=== PATIENT | female | born 1975 | race Caucasian/White ===

== ENCOUNTER 2024-12-06 21:54 | Emergency (ER) | payer MEDICAID ==
[~2024-12-06 21:54] MED LIST: DESO1TAB17 PO; LAMO100T56 PO; MULT-1065 PO; RISP1SOL10 PO; RISP3TAB6 PO; VENL-66 PO
== END 2024-12-06 22:10 | disposition left against medical advice (07) ==
LOC: EMS 21:56
DX: Z00.8 Encounter for other general examination (principal); Z53.21 Procedure and treatment not carried out due to patient leaving prior to being seen by health care provider

== ENCOUNTER 2025-01-11 19:00 | Inpatient (IN) | payer MEDICAID ==
[~2025-01-11] VITALS: Ht 167.6 cm; Wt 68.2 kg
[~2025-01-11 19:00] MED LIST changes: -DESO1TAB17 PO; +LAMO-24 PO; -LAMO100T56 PO; -MULT-1065 PO; +OLAN15TA21 PO; -RISP1SOL10 PO; -RISP3TAB6 PO
[2025-01-11 19:43] LABS: PLATELET COUNT (AUTO) 388 K/uL (150-450); RED BLOOD CELL COUNT(AUTO) 4.38 MIL/uL (4.00-5.20); RED CELL DISTRIBUTION WIDTH 13.9 % (11.5-14.5); WHITE BLOOD COUNT (AUTO) 8.1 K/uL (4.5-11.0)
[2025-01-11 19:51] LABS: CALCIUM, TOTAL 8.4 mg/dL (8.8-10.5); CREATININE 0.66 mg/dL (0.60-1.30); GLOMERULAR FILTR. RATE CALC > 60 mL/min (>60); GLUCOSE,RANDOM 103 mg/dL (70-110); SODIUM SERUM 139 mmol/L (136-145); UREA NITROGEN, BLOOD 8 mg/dL (7-18)
[2025-01-11] MEDS: LORazepam 2 MG/ML VIAL IM ONE (20:45)
[2025-01-11] MEDS: ZOLPIDEM TARTRATE 10 MG TABLET PO PRN (21:02)
[2025-01-11 21:18] LABS: APPEARANCE,URINE CLEAR (CLEAR); GLUCOSE, URINE (UA) NEGATIVE (NEGATIVE); LEUKOCYTE ESTERASE ,URINE NEGATIVE (NEGATIVE); NITRATE,URINE NEGATIVE (NEGATIVE); OCCULT BLOOD,URINE NEGATIVE (NEGATIVE); PH,URINE DRUG SCREEN 6.5 (5.0-8.0); SPECIFIC GRAVITIY, URINE 1.011 (1.003-1.030)
[2025-01-11 21:29] LABS: ALCOHOL, URINE DRUG SCREEN NEGATIVE (NEGATIVE); AMPHET/METH SCREEN,URINE NEGATIVE (NEGATIVE); BARBITURATE SCREEN, URINE NEGATIVE (NEGATIVE); CANNABINOID SCREEN,URINE NEGATIVE (NEGATIVE); COCAINE SCREEN,URINE NEGATIVE (NEGATIVE); METHADONE SCREEN, URINE NEGATIVE (NEGATIVE)
[2025-01-11 23:15] LABS: COVID AG,FIA SOURCE NASAL SWAB
[2025-01-11 23:27] LABS: SARS-COV2 (COVID) ANTIGEN,FIA Negative (Negative)
[2025-01-12 03:50] VITALS: BP 124/89; PULSE 91; RESP 17; TEMP 97.4; O2SAT 99
[2025-01-12 03:52] VITALS: BP 124/89; PULSE 91; RESP 17; TEMP 97.4; O2SAT 99
[2025-01-12] MEDS ORDERED: LOPERAMIDE HCL 2 MG CAPSULE PO PRN (06:30)
[2025-01-12] MEDS ORDERED: PETROLATUM,WHITE 28 GM JELLY TP PRN (06:30)
[2025-01-12] MEDS ORDERED: MAGNESIUM HYDROXIDE SUSPENSION 30 ML UDCUP PO PRN (06:30)
[2025-01-12] MEDS ORDERED: ACETAMINOPHEN 325 MG TABLET PO PRN (06:30)
[2025-01-12] MEDS ORDERED: MAG HYDROX/ALUMINUM HYD/SIMETH ES 30 ML SUSPENSION UDCUP PO PRN (06:30)
[2025-01-12] MEDS ORDERED: DOCUSATE SODIUM 100 MG CAPSULE PO PRN (06:30)
[2025-01-12] MEDS ORDERED: NICOTINE 14 MG/24 HOUR PATCH TD PRN (06:30)
[2025-01-12] MEDS ORDERED: ALBUTEROL SULFATE HFA 90 MCG/PUFF 8 GM INHALER IH PRN (06:30)
[2025-01-12] MEDS ORDERED: GuaiFENesin/D-METHORPHAN [SUGAR-FREE] 200-20MG/10 ML SYRUP UDCUP PO PRN (06:30)
[2025-01-12 08:40] LABS: PLATELET COUNT (AUTO) 323 K/uL (150-450); RED BLOOD CELL COUNT(AUTO) 3.93 MIL/uL (4.00-5.20); RED CELL DISTRIBUTION WIDTH 13.8 % (11.5-14.5); WHITE BLOOD COUNT (AUTO) 7.3 K/uL (4.5-11.0)
[2025-01-12] MEDS ORDERED: LITH300C3 PO (09:10)
[2025-01-12 09:30] LABS: ASPARTATE AMINOTRANSFERASE 19 U/L (15-37); CALCIUM, TOTAL 8.1 mg/dL (8.8-10.5); CHOL/HDL RATIO 2.6 (3.9-5.7); CREATININE 0.64 mg/dL (0.60-1.30); GLOMERULAR FILTR. RATE CALC > 60 mL/min (>60); GLUCOSE,RANDOM 92 mg/dL (70-110); LDL CHOL (CALC.) 71 mg/dL (0-130); SODIUM SERUM 140 mmol/L (136-145); TOTAL PROTEIN, SERUM 6.2 g/dL (6.4-8.2); UREA NITROGEN, BLOOD 10 mg/dL (7-18)
[2025-01-12] MEDS: LITHIUM CARBONATE 300 MG CAPSULE PO SCH (09:37)
[2025-01-12 20:11] VITALS: BP 133/79; PULSE 80; RESP 17; TEMP 97.8; O2SAT 98
[2025-01-12] MEDS: OLANZapine 7.5 MG TABLET PO SCH (21:00)
[2025-01-13 08:07] VITALS: BP 111/60; PULSE 96; RESP 17; TEMP 97.3; O2SAT 96
[2025-01-13 09:19] LABS: APPEARANCE,URINE CLEAR (CLEAR); GLUCOSE, URINE (UA) NEGATIVE (NEGATIVE); LEUKOCYTE ESTERASE ,URINE SMALL (NEGATIVE); NITRATE,URINE NEGATIVE (NEGATIVE); OCCULT BLOOD,URINE NEGATIVE (NEGATIVE); PH,URINE DRUG SCREEN 8.0 (5.0-8.0); SPECIFIC GRAVITIY, URINE 1.006 (1.003-1.030)
[2025-01-13 09:30] LABS: ALCOHOL, URINE DRUG SCREEN NEGATIVE (NEGATIVE); AMPHET/METH SCREEN,URINE NEGATIVE (NEGATIVE); BARBITURATE SCREEN, URINE NEGATIVE (NEGATIVE); CANNABINOID SCREEN,URINE NEGATIVE (NEGATIVE); COCAINE SCREEN,URINE NEGATIVE (NEGATIVE); METHADONE SCREEN, URINE NEGATIVE (NEGATIVE)
[2025-01-13 20:10] VITALS: BP 123/82; PULSE 70; RESP 17; TEMP 98.1; O2SAT 99
[2025-01-14] MEDS: NICOTINE POLACRILEX 2 MG LOZENGE PO PRN (05:29)
[2025-01-14] MEDS: ONDANSETRON 4 MG TABLET PO PRN (06:16)
[2025-01-14 08:14] VITALS: RESP 18
[2025-01-14 14:51] VITALS: RESP 19; O2SAT 99
[2025-01-14] MEDS: IBUPROFEN 400 MG TABLET PO PRN (14:51)
[2025-01-14 15:51] VITALS: RESP 17
[2025-01-14 20:22] VITALS: BP 112/77; PULSE 97; RESP 17; TEMP 97.5; O2SAT 98
[2025-01-15 08:21] VITALS: BP 114/74; PULSE 93; RESP 18; TEMP 98.2; O2SAT 99
[2025-01-15] MEDS: FERROUS SULFATE 325 MG EC TABLET PO SCH (16:24)
[2025-01-15 20:21] VITALS: BP 126/80; PULSE 78; RESP 18; TEMP 97.7; O2SAT 95
[2025-01-16 08:24] VITALS: BP 114/63; PULSE 84; RESP 16; TEMP 97.5; O2SAT 100
[2025-01-16 09:16] LABS: CHOL/HDL RATIO 2.4 (3.9-5.7); LDL CHOL (CALC.) 72.0 mg/dL (0-130)
[2025-01-16] MEDS ORDERED: HALO5TAB23 PO (19:51)
[2025-01-16] MEDS ORDERED: FERR325T27 PO (19:51)
[2025-01-16] MEDS ORDERED: LITH300C3 PO (19:51)
[2025-01-16 20:44] VITALS: BP 124/93; PULSE 100; RESP 18; TEMP 97.1; O2SAT 98
[2025-01-17 08:21] VITALS: RESP 16
== END 2025-01-17 12:15 | disposition home or self-care (01) | DRG 753 ==
LOC: EMS 19:02 → B3A 01-12 01:35
PROVIDERS: ADMIT Psychiatry & Neurology Psychiatry; ATTEND Psychiatry & Neurology Psychiatry
PROC: GZHZZZZ Group Psychotherapy (ICD-10-PCS; principal; 2025-01-12)
DX: F31.2 Bipolar disorder, current episode manic severe with psychotic features (principal); Z91.148 Patient's other noncompliance with medication regimen for other reason; D64.9 Anemia, unspecified; F41.9 Anxiety disorder, unspecified; G47.00 Insomnia, unspecified; Z20.822 Contact with and (suspected) exposure to COVID-19; Z88.8 Allergy status to other drugs, medicaments and biological substances; Z79.899 Other long term (current) drug therapy
CPT/HCPCS: 80048; 80053; 80061; 80178; 80307; 81001; 81003; 83036; 84436; 84443; 84703; 85025; 87081; 99285; G0480; Q0162